=== PATIENT | male | born 1940 | race Caucasian/White ===

== ENCOUNTER 2022-08-26 09:12 | Inpatient (IN) ==
--- NOTE | 2022-08-26 09:51 | Emergency Department Note ---
History of Present Illness General Chief complaint: Stroke/CVA Symptoms Stated complaint: POSSIBLE STROKE, TROUBLE SPEKAING, CANT WALK Time Seen by Provider: 08/26/22 09:33 Source: patient and family (Children who are at the bedside) Mode of arrival: ambulatory Limitations: no limitations History of Present Illness Maximum Pain Intensity: 0 This patient is an 81-year-old male who is brought in after having weakness and slurred speech the said that they noticed this at 7:00 this morning. He was not feeling well yesterday however they said he just seemed a little off but today significantly worse. He apparently stopped taking blood pressure medicine he does have a history of some sort of brain bleed and family is unclear whether he had surgery or not. This was a couple years ago. He has been having trouble speaking. No chest pain or shortness of breath. He is more sleepy than normal. Allergies Allergy/AdvReac Type Severity Reaction Status Date / Time No Known Allergies Allergy Unverified 08/26/22 12:14 Past Med/Surg History Social History Smoking Status: Unknown if ever smoked Feels Safe at Home: Yes Immunizations: Past medical historyhe had some sort of hemorrhagic brain process. There is no old records available. Family does not know much about his medical history and they say he is very private with his medical information. They do of a POLST and he is a DO NOT RESUSCITATE and they said he would not want to be resuscitated or have intubation Review of Systems Unobtainable due to cognitive status (The patient is drowsy and does answer questions slowly but vaguely so is difficult to get an accurate answer) Physical Exam Vital Signs Vital Signs - 24 hr 08/26/22 09:17 Temperature 36.8 C Temperature Source Temporal Artery Scan Pulse Rate 64 Respiratory Rate 18 Blood Pressure 135/78 Blood Pressure Mean 97 Pulse Oximetry 97 Oxygen Delivery Method Room Air Sepsis Recent Fever Within 48 Hours No Sepsis New/Unexplained Change in Mental Status No Sepsis Action Taken by Nursing No Action Required General: Well developed well nourished slender older male who in no acute distress, breathing comfortably on room air. Speech is very thick and slow. He does answer some questions appropriately HEENT: Normal cephalic atraumatic. Pupils are equal round and reactive to light. Extraocular movements are intact. Oropharynx is pink with moist mucous membranes. No swelling of the mouth lips or tongue. He does appear to have a facial droop on the right Neck: Supple with a midline trachea. No meningeal signs or stiffness, no JVD or bruits. No Stridor. Chest: Clear to auscultation bilaterally. No wheezes or rhonchi. No increased work of breathing. Heart: Regular rate and rhythm without murmurs or gallops. Abdomen: Soft nontender, nondistended without rebound guarding or rigidity. Extremities: No cyanosis clubbing or edema. No calf tenderness or assymetry Spine/Back. Non tender to palpation. No CVA tenderness Skin: Good turgor without rashes. Neurologic exam: He does have slurred speech and facial droop on the right otherwise cranial nerves two through 12 are intact. Motor and sensation are intact and symmetrical throughout Course Administered Medications Discontinued Medications Aspirin (Aspirin 300 Mg Supp) 300 mg UT ONE ONE Stop: 08/26/22 11:06 Last Admin: 08/26/22 11:36 Dose: 300 mg Documented By: DAINA Ioversol (Optiray 320 500ml) 120 ml IV ONCE ONE Stop: 08/26/22 09:55 Last Admin: 08/26/22 09:54 Dose: 120 ml Documented By: NEISHA Critical Care Time Critical Care Time: Yes Total Critical Care Time: 35 Due to the patient's acute neurologic symptoms, concern for intracranial hemorrhage and CVA, need for stroke alert, frequent reassessment, consideration for thrombolytics, consultation with neurology and the hospitalist and discussions with the family about goals of care, I have personally spent greater than 35 minutes of critical care time in the direct management of this patient. This includes bedside care, interpretation of diagnostic studies, and testing, d iscussion with consultants, patient, and family members, and other required patient management activities. This 35 minutes is in excess of all separately billable procedures. Medical Decision Making Differential Diagnosis Hemorrhagic CVA, subdural, CVA, infection, electrolyte or metabolic abnormality, arrhythmia Medical Records Attestation: I reviewed the patient's medical records. Home Medications Current Medication List: was personally reviewed by me Laboratory Data Attestation: I reviewed the patient's lab results. Result diagrams: 08/26/22 09:39 08/26/22 09:39 Lab Results 08/26/22 08/26/22 08/26/22 Range/Units 09:39 09:39 09:39 WBC 4.31 L (4.8-10.8) K/ul RBC 5.11 (4.63-6.08) M/uL Hgb 15.8 (14.0-18.0) g/dl POC Hgb (14.0-18.0) g/dl Hct 45.3 (40.1-51.0) % POC Hct (42-52) % MCV 88.6 (80.0-100.0) fL MCH 30.9 (25.0-34.0) pg MCHC 34.9 (32.0-36.0) g/dL RDW Std Deviation 41.1 (36.4-46.3) fL RDW Coeff of Mychal 12.5 (11.5-14.5) % Plt Count 200 (130-400) K/uL MPV 9.2 L (9.4-12.4) fL Immature Gran % (Auto) 0.5 % Neut % (Auto) 60.6 % Lymph % (Auto) 20.0 % [place] % (Auto) 16.5 % Eos % (Auto) 1.2 % Baso % (Auto) 1.2 % Neut # (Auto) 2.62 (1.4-6.5) K/uL Lymph # (Auto) 0.86 L (1.2-3.4) K/uL [place] # (Auto) 0.71 (0.24-0.82) K/uL Eos # (Auto) 0.05 (0-0.50) K/uL Baso # (Auto) 0.05 (0-0.2) K/uL Immature Gran # (Auto) 0.02 (0.00-0.02) K/uL PT 11.3 (9.0-12.0) Seconds INR 1.1 (0.9-1.1) APTT 23.9 (21.0-31.0) Seconds PTT Ratio 0.9 POC Sodium (135-144) mmol/L Sodium 138 (136-145) mmol/L POC Potassium (3.3-5.0) mmol/L Potassium 4.1 (3.5-5.1) mmol/L POC Chloride (101-112) mmol/L Chloride 106 (98-107) mmol/L Carbon Dioxide 26 (21-32) mmol/L POC Total CO2 (24-31) mmol/L Anion Gap 6 (3-11) POC Anion Gap (16-25) mmol/L POC BUN (7-18) mg/dl BUN 18 (6-23) mg/dl Creatinine 1.05 (0.6-1.4) mg/dl POC Creatinine (0.6-1.3) mg/dl Est Cr Clr Drug Dosing Not Reportable Est GFR ( Amer) 76.8 ml/min Est GFR (Non-Af Amer) 66.3 ml/min BUN/Creatinine Ratio 17.1 (10-20) Glucose 99 (70-99(Fasting)) mg/dl POC Glucose (other) (70-99) mg/dl Calcium 9.2 (8.5-10.1) mg/dl POC Ioniz Calcium Jeffery (1.12-1.32) mmol/l Magnesium 2.2 (1.7-2.4) mg/dl Total Bilirubin 1.1 H (0.2-1.0) mg/dl AST 22 (13-39) U/L ALT 10 (7-52) U/L Alkaline Phosphatase 46 (34-104) U/L Troponin I High Sens 17.2 (0-20) pg/ml Total Protein 6.4 (6.0-8.3) gm/dl Albumin 4.1 (3.4-5.0) gm/dl Globulin 2.3 L (2.5-4.0) gm/dl Albumin/Globulin Ratio 1.8 (0.9-2) 08/26/22 Range/Units 09:42 WBC (4.8-10.8) K/ul RBC (4.63-6.08) M/uL Hgb (14.0-18.0) g/dl POC Hgb 15.3 (14.0-18.0) g/dl Hct (40.1-51.0) % POC Hct 45 (42-52) % MCV (80.0-100.0) fL MCH (25.0-34.0) pg MCHC (32.0-36.0) g/dL RDW Std Deviation (36.4-46.3) fL RDW Coeff of Mychal (11.5-14.5) % Plt Count (130-400) K/uL MPV (9.4-12.4) fL Immature Gran % (Auto) % Neut % (Auto) % Lymph % (Auto) % [place] % (Auto) % Eos % (Auto) % Baso % (Auto) % Neut # (Auto) (1.4-6.5) K/uL Lymph # (Auto) (1.2-3.4) K/uL [place] # (Auto) (0.24-0.82) K/uL Eos # (Auto) (0-0.50) K/uL Baso # (Auto) (0-0.2) K/uL Immature Gran # (Auto) (0.00-0.02) K/uL PT (9.0-12.0) Seconds INR (0.9-1.1) APTT (21.0-31.0) Seconds PTT Ratio POC Sodium 140 (135-144) mmol/L Sodium (136-145) mmol/L POC Potassium 4.0 (3.3-5.0) mmol/L Potassium (3.5-5.1) mmol/L POC Chloride 103 (101-112) mmol/L Chloride (98-107) mmol/L Carbon Dioxide (21-32) mmol/L POC Total CO2 25 (24-31) mmol/L Anion Gap (3-11) POC Anion Gap 17.0 (16-25) mmol/L POC BUN 19 H (7-18) mg/dl BUN (6-23) mg/dl Creatinine (0.6-1.4) mg/dl POC Creatinine 1.2 (0.6-1.3) mg/dl Est Cr Clr Drug Dosing Est GFR ( Amer) ml/min Est GFR (Non-Af Amer) ml/min BUN/Creatinine Ratio (10-20) Glucose (70-99(Fasting)) mg/dl POC Glucose (other) 101 H (70-99) mg/dl Calcium (8.5-10.1) mg/dl POC Ioniz Calcium Jeffery 1.18 (1.12-1.32) mmol/l Magnesium (1.7-2.4) mg/dl Total Bilirubin (0.2-1.0) mg/dl AST (13-39) U/L ALT (7-52) U/L Alkaline Phosphatase (34-104) U/L Troponin I High Sens (0-20) pg/ml Total Protein (6.0-8.3) gm/dl Albumin (3.4-5.0) gm/dl Globulin (2.5-4.0) gm/dl Albumin/Globulin Ratio (0.9-2) Imaging Data Attestation: I personally reviewed and interpreted this imaging study as follows: My Impression: Head CTthere is no acute hemorrhage. There is a acute infarct in the left posterior brain. No midline shift. Radiologist's Impression: Head CT 08/26/22 09:43 CT angio neck with con, CT angio head w con, CT head/brain wo con CLINICAL HISTORY: cva TECHNIQUE: Contiguous axial CT images of the head were acquired from the base of the skull to the vertex without intravenous contrast administration. CT angiography of the head and neck was performed following intravenous administration of iodinated contrast. Coronal and sagittal MIPS were obtained from the axial data set and were submitted for review. Automated dose lowering techniques and/or adjustment according to patient size were utilized for this examination. All measurements were calculated based on NASCET criteria. CT DOSE: 1346.53 mGy.cm Comparison: None available at the time of this dictation. FINDINGS: CT head: There is hypodensity in the left JAVA TECHNICAL ARCHITECT distribution. Encephalomalacia is in the left frontal lobe. Postsurgical changes are in the right calvarium. Lungs and soft tissues are unremarkable. CTA Neck: A 3 vessel aortic arch is shown. There is no significant atherosclerotic plaque in the aortic arch or the origins of the innominate, left common carotid, and left subclavian arteries. The common carotid, external carotid, cervical segments of the internal carotid arteries, and the cervical segments of the vertebral arteries are patent without hemodynamically significant stenosis. The left vertebral artery is dominant. CTA Head: The anterior and posterior cerebral circulations are patent. No hemodynamically significant stenosis, aneurysm, dissection, or arteriovenous malformation is shown. There is abrupt termination of the left JAVA TECHNICAL ARCHITECT. IMPRESSION: 1. There is an acute infarct in the left JAVA TECHNICAL ARCHITECT distribution with occlusion of the left JAVA TECHNICAL ARCHITECT. No hemorrhagic transformation seen. 2. No occlusion, hemodynamically significant stenosis, or dissection in the major cervical arteries. Assessment of stenosis of the internal carotid arteries is based on NASCET criteria. ACT 112: Negative or not required by law. Electronically signed by: Rigoberto Paula M.D. 08/26/2022 10:41 AM Head CTA 08/26/22 09:44 CT angio neck with con, CT angio head w con, CT head/brain wo con CLINICAL HISTORY: cva TECHNIQUE: Contiguous axial CT images of the head were acquired from the base of the skull to the vertex without intravenous contrast administration. CT angiography of the head and neck was performed following intravenous administration of iodinated contrast. Coronal and sagittal MIPS were obtained from the axial data set and were submitted for review. Automated dose lowering techniques and/or adjustment according to patient size were utilized for this examination. All measurements were calculated based on NASCET criteria. CT DOSE: 1346.53 mGy.cm Comparison: None available at the time of this dictation. FINDINGS: CT head: There is hypodensity in the left JAVA TECHNICAL ARCHITECT distribution. Encephalomalacia is in the left frontal lobe. Postsurgical changes are in the right calvarium. Lungs and soft tissues are unremarkable. CTA Neck: A 3 vessel aortic arch is shown. There is no significant atherosclerotic plaque in the aortic arch or the origins of the innominate, left common carotid, and left subclavian arteries. The common carotid, external c arotid, cervical segments of the internal carotid arteries, and the cervical segments of the vertebral arteries are patent without hemodynamically significant stenosis. The left vertebral artery is dominant. CTA Head: The anterior and posterior cerebral circulations are patent. No hemodynamically significant stenosis, aneurysm, dissection, or arteriovenous malformation is shown. There is abrupt termination of the left JAVA TECHNICAL ARCHITECT. IMPRESSION: 1. There is an acute infarct in the left JAVA TECHNICAL ARCHITECT distribution with occlusion of the left JAVA TECHNICAL ARCHITECT. No hemorrhagic transformation seen. 2. No occlusion, hemodynamically significant stenosis, or dissection in the major cervical arteries. Assessment of stenosis of the internal carotid arteries is based on NASCET criteria. ACT 112: Negative or not required by law. Electronically signed by: Rigoberto Paula M.D. 08/26/2022 10:41 AM Neck CTA 08/26/22 09:44 CT angio neck with con, CT angio head w con, CT head/brain wo con CLINICAL HISTORY: cva TECHNIQUE: Contiguous axial CT images of the head were acquired from the base of the skull to the vertex without intravenous contrast administration. CT angiography of the head and neck was performed following intravenous administration of iodinated contrast. Coronal and sagittal MIPS were obtained from the axial data set and were submitted for review. Automated dose lowering techniques and/or adjustment according to patient size were utilized for this examination. All measurements were calculated based on NASCET criteria. CT DOSE: 1346.53 mGy.cm Comparison: None available at the time of this dictation. FINDINGS: CT head: There is hypodensity in the left JAVA TECHNICAL ARCHITECT distribution. Encephalomalacia is in the left frontal lobe. Postsurgical changes are in the right calvarium. Lungs and soft tissues are unremarkable. CTA Neck: A 3 vessel aortic arch is shown. There is no significant atherosclerotic plaque in the aortic arch or the origins of the innominate, left common carotid, and left subclavian arteries. The common carotid, external carotid, cervical segments of the internal carotid arteries, and the cervical segments of the vertebral arteries are patent without hemodynamically significant stenosis. The left vertebral artery is dominant. CTA Head: The anterior and posterior cerebral circulations are patent. No hemodynamically significant stenosis, aneurysm, dissection, or arteriovenous malformation is shown. There is abrupt termination of the left JAVA TECHNICAL ARCHITECT. IMPRESSION: 1. There is an acute infarct in the left JAVA TECHNICAL ARCHITECT distribution with occlusion of the left JAVA TECHNICAL ARCHITECT. No hemorrhagic transformation seen. 2. No occlusion, hemodynamically significant stenosis, or dissection in the major cervical arteries. Assessment of stenosis of the internal carotid arteries is based on NASCET criteria. ACT 112: Negative or not required by law. Electronically signed by: Rigoberto Paula M.D. 08/26/2022 10:41 AM ECG Data Attestation: I personally reviewed and interpreted this ECG as follows: Indication: + weakness Rate (beats per minute): 59 Rhythm: + sinus bradycardia ECG Intervals/blocks: + Normal QRS, + Normal QT and + Normal UT ECG [place]: + Normal ECG ST segments: + Normal ST segments ECG Findings: + Poor R wave progression; no PACs or no PVCs Comparison ECG Date: no prior available MDM Narrative This patient comes in as described above. The nurse called me to see the patient as he presented with strokelike symptoms and acute illness and I went and immediately and they were in the process of getting an IV and getting blood work done. His EKG does not show ischemic changes and there is no old for comparison. He does seem sleepy but answers some questions appropriately, his speech is very thick and slow. He appears to have a facial droop on the right. He had a brain hemorrhage there may have been a some trauma recently as well apparently hit his head on the window but they are not sure how long ago. He was also feeling off yesterday and seemed not himself. He also stopped taking blood pressure medicine. I do not think he would likely be a tPA candidate because of all these measures with a history of hemorrhagic CVA and he woke up at 7:00 AM with these symptoms so it is uncertain how long this actually has gone on. I did call a stroke alert to expedite his care. Also I talk to Dr. Arriaga, and he agrees that the patient is not a thrombolytic candidate. 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 Talking to family at length they tell me he is DNR and would not want to be intubated and they do not want aggressive measures such as feeding tubes. He will be admitted for further treatment and evaluation he was given rectal aspirin. I have consulted the [facility] Hospitalist. Continuous cardiac monitoring: An order was placed in EMR for continuous cardiac monitoring. 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), Essential hypertension, Goals of care, counseling/discussion, DNR (do not resuscitate), Lab test negative for COVID-19 virus Discharge Plan Visit Data Chief Complaint: Stroke/CVA Symptoms Stated Complaint: POSSIBLE STROKE, TROUBLE SPEKAING, CANT WALK ED Provider: Uday Rey Discharge Problem: Acute cerebrovascular accident (CVA) due to occlusion of left posterior cerebral artery, 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
[2022-08-26 09:54] LABS: iSTAT Creatinine 1.2 mg/dl (0.6-1.3); iSTAT Hemoglobin 15.3 g/dl (14.0-18.0); iSTAT Ionized Calcium 1.18 mmol/l (1.12-1.32)
[2022-08-26] MEDS ORDERED: OPTIRAY 320 500ml IV ONE (09:54)
[2022-08-26 10:03] LABS: INR 1.1 (0.9-1.1); Partial Thromboplastin Ratio 0.9; Partial Thromboplastin Time 23.9 Seconds (21.0-31.0); Prothrombin Time 11.3 Seconds (9.0-12.0)
[2022-08-26 10:13] LABS: Alanine Aminotransferase 10 U/L (7-52); Albumin Globulin Ratio 1.8 (0.9-2); Albumin Level 4.1 gm/dl (3.4-5.0); Alkaline Phosphatase 46 U/L (34-104); Anion Gap 6 (3-11); Aspartate Aminotransferase 22 U/L (13-39); BUN Creatinine Ratio 17.1 (10-20); Bilirubin,Total 1.1 mg/dl (0.2-1.0); Blood Urea Nitrogen 18 mg/dl (6-23); Calcium 9.2 mg/dl (8.5-10.1); Carbon Dioxide 26 mmol/L (21-32); Chloride 106 mmol/L (98-107); Est GFR (African American) 76.8 ml/min; Est GFR (Non-African American) 66.3 ml/min; Globulin 2.3 gm/dl (2.5-4.0); Glucose 99 mg/dl (70-99(Fasting)); Magnesium 2.2 mg/dl (1.7-2.4); Potassium 4.1 mmol/L (3.5-5.1); Sodium 138 mmol/L (136-145); Total Protein 6.4 gm/dl (6.0-8.3); Troponin I High Sensitivity 17.2 pg/ml (0-20)
[2022-08-26 10:14] LABS: Basophils # (auto) 0.05 K/uL (0-0.2); Basophils % (auto) 1.2 %; Eosinophils # (auto) 0.05 K/uL (0-0.50); Eosinophils % (auto) 1.2 %; Hematocrit (blood only) 45.3 % (40.1-51.0); Hemoglobin 15.8 g/dl (14.0-18.0); Immature Granulocytes # (auto) 0.02 K/uL (0.00-0.02); Immature Granulocytes % (auto) 0.5 %; Lymphocytes # (auto) 0.86 K/uL (1.2-3.4); Mean Corpuscular Hemoglobin 30.9 pg (25.0-34.0); Mean Corpuscular Hgb Conc 34.9 g/dL (32.0-36.0); Mean Corpuscular Volume 88.6 fL (80.0-100.0); Mean Platelet Volume 9.2 fL (9.4-12.4); Monocytes # (auto) 0.71 K/uL (0.24-0.82); Monocytes % (auto) 16.5 %; Neutrophils # (auto) 2.62 K/uL (1.4-6.5); Neutrophils % (auto) 60.6 %; Platelet Count 200 K/uL (130-400); RDW Coefficient of Variation 12.5 % (11.5-14.5); RDW Standard Deviation 41.1 fL (36.4-46.3); Red Blood Count 5.11 M/uL (4.63-6.08); White Blood Count 4.31 K/ul (4.8-10.8)
--- NOTE | 2022-08-26 10:43 | CT Scan Report ---
CT angio neck with con, CT angio head w con, CT head/brain wo con CLINICAL HISTORY: cva TECHNIQUE: Contiguous axial CT images of the head were acquired from the base of the skull to the donna dontae without intravenous contrast administration. CT angiography of the head and neck was performed f ollowing intravenous administration of iodinated contrast. Coronal and sagittal MIPS were obtained fr om the axial data set and were submitted for review. Automated dose lowering techniques and/or adjus tment according to patient size were utilized for this examination. All measurements were calculated based on NASCET criteria. CT DOSE: 1346.53 mGy.cm Comparison: None available at the time of this dictation. FINDINGS: CT head: There is hypodensity in the left OCULAR PATHOLOGIST distribution. Encephalomalacia is in the left frontal l obe. Postsurgical changes are in the right calvarium. Lungs and soft tissues are unremarkable. CTA Neck: A 3 vessel aortic arch is shown. There is no significant atherosclerotic plaque in the aor tic arch or the origins of the innominate, left common carotid, and left subclavian arteries. The c ommon carotid, external carotid, cervical segments of the internal carotid arteries, and the cervical segments of the vertebral arteries are patent without hemodynamically significant stenosis. The left vertebral artery is dominant. CTA Head: The anterior and posterior cerebral circulations are patent. No hemodynamically significan t stenosis, aneurysm, dissection, or arteriovenous malformation is shown. There is abrupt termination of the left OCULAR PATHOLOGIST. IMPRESSION: 1. There is an acute infarct in the left OCULAR PATHOLOGIST distribution with occlusion of the left OCULAR PATHOLOGIST. No hemorrh agic transformation seen. 2. No occlusion, hemodynamically significant stenosis, or dissection in the major cervical arteries. Assessment of stenosis of the internal carotid arteries is based on NASCET criteria. ACT 112: Negative or not required by law. Electronically signed by: Rigoberto Paula M.D. 08/26/2022 10:41 AM
--- NOTE | 2022-08-26 10:43 | CT Scan Report ---
CT angio neck with con, CT angio head w con, CT head/brain wo con CLINICAL HISTORY: cva TECHNIQUE: Contiguous axial CT images of the head were acquired from the base of the skull to the donna dontae without intravenous contrast administration. CT angiography of the head and neck was performed f ollowing intravenous administration of iodinated contrast. Coronal and sagittal MIPS were obtained fr om the axial data set and were submitted for review. Automated dose lowering techniques and/or adjus tment according to patient size were utilized for this examination. All measurements were calculated based on NASCET criteria. CT DOSE: 1346.53 mGy.cm Comparison: None available at the time of this dictation. FINDINGS: CT head: There is hypodensity in the left RELAY SHOP SUPERVISOR distribution. Encephalomalacia is in the left frontal l obe. Postsurgical changes are in the right calvarium. Lungs and soft tissues are unremarkable. CTA Neck: A 3 vessel aortic arch is shown. There is no significant atherosclerotic plaque in the aor tic arch or the origins of the innominate, left common carotid, and left subclavian arteries. The c ommon carotid, external carotid, cervical segments of the internal carotid arteries, and the cervical segments of the vertebral arteries are patent without hemodynamically significant stenosis. The left vertebral artery is dominant. CTA Head: The anterior and posterior cerebral circulations are patent. No hemodynamically significan t stenosis, aneurysm, dissection, or arteriovenous malformation is shown. There is abrupt termination of the left RELAY SHOP SUPERVISOR. IMPRESSION: 1. There is an acute infarct in the left RELAY SHOP SUPERVISOR distribution with occlusion of the left RELAY SHOP SUPERVISOR. No hemorrh agic transformation seen. 2. No occlusion, hemodynamically significant stenosis, or dissection in the major cervical arteries. Assessment of stenosis of the internal carotid arteries is based on NASCET criteria. ACT 112: Negative or not required by law. Electronically signed by: Rigoberto Paula M.D. 08/26/2022 10:41 AM
--- NOTE | 2022-08-26 10:43 | CT Scan Report ---
CT angio neck with con, CT angio head w con, CT head/brain wo con CLINICAL HISTORY: cva TECHNIQUE: Contiguous axial CT images of the head were acquired from the base of the skull to the donna dontae without intravenous contrast administration. CT angiography of the head and neck was performed f ollowing intravenous administration of iodinated contrast. Coronal and sagittal MIPS were obtained fr om the axial data set and were submitted for review. Automated dose lowering techniques and/or adjus tment according to patient size were utilized for this examination. All measurements were calculated based on NASCET criteria. CT DOSE: 1346.53 mGy.cm Comparison: None available at the time of this dictation. FINDINGS: CT head: There is hypodensity in the left INFECTION PREVENTION SPECIALIST distribution. Encephalomalacia is in the left frontal l obe. Postsurgical changes are in the right calvarium. Lungs and soft tissues are unremarkable. CTA Neck: A 3 vessel aortic arch is shown. There is no significant atherosclerotic plaque in the aor tic arch or the origins of the innominate, left common carotid, and left subclavian arteries. The c ommon carotid, external carotid, cervical segments of the internal carotid arteries, and the cervical segments of the vertebral arteries are patent without hemodynamically significant stenosis. The left vertebral artery is dominant. CTA Head: The anterior and posterior cerebral circulations are patent. No hemodynamically significan t stenosis, aneurysm, dissection, or arteriovenous malformation is shown. There is abrupt termination of the left INFECTION PREVENTION SPECIALIST. IMPRESSION: 1. There is an acute infarct in the left INFECTION PREVENTION SPECIALIST distribution with occlusion of the left INFECTION PREVENTION SPECIALIST. No hemorrh agic transformation seen. 2. No occlusion, hemodynamically significant stenosis, or dissection in the major cervical arteries. Assessment of stenosis of the internal carotid arteries is based on NASCET criteria. ACT 112: Negative or not required by law. Electronically signed by: Rigoberto Paula M.D. 08/26/2022 10:41 AM
[2022-08-26] MEDS ORDERED: ASPIRIN 300 MG SUPP PR ONE (11:05)
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
[2022-08-26] MEDS ORDERED: PHARMACIST DISCHARGE MED REC CONSULT PRN (13:26)
--- NOTE | 2022-08-26 16:06 | Neurology Consultation ---
Date of Consultation August 26, 2022 Assessment & Plan (1) Acute cerebrovascular accident (CVA) due to occlusion of left posterior cerebral artery: Impression: The patient was found lethargic with right-sided hemiparesis this morning. He was not a candidate for thrombolytic treatment because of being outside of treatment window. He was giving an aspirin suppository. Head CT and CT angiography of head was consistent with the left posterior cerebral artery occlusion related acute ischemic stroke. CT angiography of the neck did not show hemodynamically significant stenosis. Telemetry monitoring has been showing sinus rhythm. The patient is DNR and DNI. Family declined further testing including MRI and echocardiogram. Plan/recommendations: Aspirin suppository 300 mg daily until p.o. started. Physical therapy, Occupational Therapy and speech pathology consultations. We will keep the patient n.p.o. until speech pathology clearance. IV normal saline 100 mL/h. Permissive hypertension for next 24 hours. We will not treat high blood pressure up to 220/120. Then, gradual lowering blood pressure with goal level is lower than 130/80. Lipid panel. We will start patient on statin when possible. Goal LDL level is lower than 70. Echocardiogram. Telemetry monitoring. Brain MRI to investigate for additional ischemic strokes which might indicate anticoagulation. Family meeting to decide care level. (2) Essential hypertension: Impression: As seen above. (3) CAD (coronary atherosclerotic disease): Plan Thank you for the consultation. History of Present Illness Reason for Consultation: CVA Requesting Physician: Stephanie Schwab PA-C Attending Physician: Mana Galeano MD History of Present Illness The patient is 81-year-old gentleman, who was brought to emergency department this morning, after he was found confused, with right side weakness this morning by other family members. Head CT revealed acute ischemic stroke involving the left posterior cerebral artery territory. CT angiography of the neck was unremarkable but CT angiography of head showed left posterior cerebral artery occlusion. Because of the patient's lethargy, most of the information has been gathered from the patient's family. The patient has no prior history of stroke or stroke symptoms. There has been no established diagnosis of atrial fibrillation. According to family, the patient stopped taking blood pressure medication recently for unknown reason. After discussing case with telestroke neurologist, the patient was found not a candidate for thrombolytic treatment because of being outside of treatment window. He has remote history of intracranial hemorrhage but we do not know details. The patient received a dose of aspirin suppository. Family refused additional work-up including MRI and echocardiogram at this time. They changed the patient's care level to DNR/DNI. The patient is currently very lethargic and cannot answer questions. He has right-sided dense hemiparesis as well as dysarthria and limited verbal output. I have reviewed the patient's chart including imaging studies and visualized them personally. I have discussed the case with admitting physician. Allergies Allergy/AdvReac Type Severity Reaction Status Date / Time No Known Allergies Allergy Unverified 08/26/22 12:14 Home Medications Medication Instructions Recorded Confirmed Type carvedilol 3.125 mg tablet 3.125 mg PO BID 08/26/22 08/26/22 History tamsulosin 0.4 mg capsule 0.4 mg PO DAILY 08/26/22 08/26/22 History Patient History Social History Smoking Status: Unknown if ever smoked Feels Safe at Home: Yes Review of Systems Review of Systems: Unobtainable due to cognitive status Physical Exam Physical Exam: General Examination: Constitutional: Well developed person in no acute distress. HEENT: Normal exam with inspection. Oral mucosa is very dry. CV: Hearth rhythm is regular. Neck: Supple, no carotid bruits. Lungs: Non-labored and comfortable breathing. Abdomen: Soft, non-tender, non-distended. Skin: No rash or ecchymosis. Extremities: No edema or cyanosis NEUROLOGICAL EXAMINATION: Mental Status: Lethargic. Opens eyes to tactile stimuli with positive eye contact. Falls back to sleep state quickly. Cranial Nerves: Pupils are 4 mm and reactive to light bilaterally. Positive gag and corneal reflexes. There is some facial asymmetry with weakness on the right, during grimacing. No nystagmus. Visual mac cannot be tested reliably Funduscopy: Cannot visualize. Motor: The patient moves left upper and lower extremities strongly.The patient cannot raise his right arm or leg against gravity. Tone: Decreased on the right side. Sensory: Feels pinprick in all extremities. Coordination: Cannot be assessed at this time because of altered mental status. Speech: The patient is currently aphasic. He tries to make few words, which is very dysarthric. He follows some of simple verbal commands appropriately. Gait: Unable to assess. Musculoskeletal: Normal muscle bulk, no atrophy. Results & Data ([facility]) Vital Signs (Past 12 Hours) Vital Signs Temp Pulse Pulse Resp BP BP Pulse Ox 08/26/22 13:00 63 20 153/59 H 90 08/26/22 11:41 64 24 143/77 H 96 08/26/22 11:12 58 L 16 134/69 94 08/26/22 09:17 36.8 C 64 18 135/78 97 O2 Del Method 08/26/22 13:00 Room Air 08/26/22 11:41 Room Air 08/26/22 11:12 08/26/22 09:17 Room Air Laboratory Results Laboratory Results - last 24 hr 08/26/22 08/26/22 08/26/22 09:39 09:39 09:39 WBC 4.31 L RBC 5.11 Hgb 15.8 POC Hgb Hct 45.3 POC Hct MCV 88.6 MCH 30.9 MCHC 34.9 RDW Std Deviation 41.1 RDW Coeff of Mychal 12.5 Plt Count 200 MPV 9.2 L Immature Gran % (Auto) 0.5 Neut % (Auto) 60.6 Lymph % (Auto) 20.0 [place] % (Auto) 16.5 Eos % (Auto) 1.2 Baso % (Auto) 1.2 Neut # (Auto) 2.62 Lymph # (Auto) 0.86 L [place] # (Auto) 0.71 Eos # (Auto) 0.05 Baso # (Auto) 0.05 Immature Gran # (Auto) 0.02 PT 11.3 INR 1.1 APTT 23.9 PTT Ratio 0.9 POC Sodium Sodium 138 POC Potassium Potassium 4.1 POC Chloride Chloride 106 Carbon Dioxide 26 POC Total CO2 Anion Gap 6 POC Anion Gap POC BUN BUN 18 Creatinine 1.05 POC Creatinine Est Cr Clr Drug Dosing Not Reportable Est GFR ( Amer) 76.8 Est GFR (Non-Af Amer) 66.3 BUN/Creatinine Ratio 17.1 Glucose 99 POC Glucose (other) Calcium 9.2 POC Ioniz Calcium Jeffery Magnesium 2.2 Total Bilirubin 1.1 H AST 22 ALT 10 Alkaline Phosphatase 46 Troponin I High Sens 17.2 Total Protein 6.4 Albumin 4.1 Globulin 2.3 L Albumin/Globulin Ratio 1.8 SARS-CoV-2, RNA, NAAT 08/26/22 08/26/22 09:42 11:21 WBC RBC Hgb POC Hgb 15.3 Hct POC Hct 45 MCV MCH MCHC RDW Std Deviation RDW Coeff of Mychal Plt Count MPV Immature Gran % (Auto) Neut % (Auto) Lymph % (Auto) [place] % (Auto) Eos % (Auto) Baso % (Auto) Neut # (Auto) Lymph # (Auto) [place] # (Auto) Eos # (Auto) Baso # (Auto) Immature Gran # (Auto) PT INR APTT PTT Ratio POC Sodium 140 Sodium POC Potassium 4.0 Potassium POC Chloride 103 Chloride Carbon Dioxide POC Total CO2 25 Anion Gap POC Anion Gap 17.0 POC BUN 19 H BUN Creatinine POC Creatinine 1.2 Est Cr Clr Drug Dosing Est GFR ( Amer) Est GFR (Non-Af Amer) BUN/Creatinine Ratio Glucose POC Glucose (other) 101 H Calcium POC Ioniz Calcium Jeffery 1.18 Magnesium Total Bilirubin AST ALT Alkaline Phosphatase Troponin I High Sens Total Protein Albumin Globulin Albumin/Globulin Ratio SARS-CoV-2, RNA, NAAT NEGATIVE Diagnostic Findings Head CT 08/26/22 09:43 CT angio neck with con, CT angio head w con, CT head/brain wo con CLINICAL HISTORY: cva TECHNIQUE: Contiguous axial CT images of the head were acquired from the base of the skull to the vertex without intravenous contrast administration. CT angiography of the head and neck was performed following intravenous administration of iodinated contrast. Coronal and sagittal MIPS were obtained from the axial data set and were submitted for review. Automated dose lowering techniques and/or adjustment according to patient size were utilized for this examination. All measurements were calculated based on NASCET criteria. CT DOSE: 1346.53 mGy.cm Comparison: None available at the time of this dictation. FINDINGS: CT head: There is hypodensity in the left MANAGED CARE SPECIALIST distribution. Encephalomalacia is in the left frontal lobe. Postsurgical changes are in the right calvarium. Lungs and soft tissues are unremarkable. CTA Neck: A 3 vessel aortic arch is shown. There is no significant atherosclerotic plaque in the aortic arch or the origins of the innominate, left common carotid, and left subclavian arteries. The common carotid, external carotid, cervical segments of the internal carotid arteries, and the cervical segments of the vertebral arteries are patent without hemodynamically significant stenosis. The left vertebral artery is dominant. CTA Head: The anterior and posterior cerebral circulations are patent. No hemodynamically significant stenosis, aneurysm, dissection, or arteriovenous malformation is shown. There is abrupt termination of the left MANAGED CARE SPECIALIST. IMPRESSION: 1. There is an acute infarct in the left MANAGED CARE SPECIALIST distribution with occlusion of the left MANAGED CARE SPECIALIST. No hemorrhagic transformation seen. 2. No occlusion, hemodynamically significant stenosis, or dissection in the major cervical arteries. Assessment of stenosis of the internal carotid arteries is based on NASCET criteria. ACT 112: Negative or not required by law. Electronically signed by: Rigoberto Paula M.D. 08/26/2022 10:41 AM Head CTA 08/26/22 09:44 CT angio neck with con, CT angio head w con, CT head/brain wo con CLINICAL HISTORY: cva TECHNIQUE: Contiguous axial CT images of the head were acquired from the base of the skull to the vertex without intravenous contrast administration. CT angiography of the head and neck was performed following intravenous administration of iodinated contrast. Coronal and sagittal MIPS were obtained from the axial data set and were submitted for review. Automated dose lowering techniques and/or adjustment according to patient size were utilized for this examination. All measurements were calculated based on NASCET criteria. CT DOSE: 1346.53 mGy.cm Comparison: None available at the time of this dictation. FINDINGS: CT head: There is hypodensity in the left MANAGED CARE SPECIALIST distribution. Encephalomalacia is in the left frontal lobe. Postsurgical changes are in the right calvarium. Lungs and soft tissues are unremarkable. CTA Neck: A 3 vessel aortic arch is shown. There is no significant atherosclerotic plaque in the aortic arch or the origins of the innominate, left common carotid, and left subclavian arteries. The common carotid, external carotid, cervical segments of the internal carotid arteries, and the cervical segments of the vertebral arteries are patent without hemodynamically significant stenosis. The left vertebral artery is dominant. CTA Head: The anterior and posterior cerebral circulations are patent. No hemodynamically significant stenosis, aneurysm, dissection, or arteriovenous malformation is shown. There is abrupt termination of the left MANAGED CARE SPECIALIST. IMPRESSION: 1. There is an acute infarct in the left MANAGED CARE SPECIALIST distribution with occlusion of the left MANAGED CARE SPECIALIST. No hemorrhagic transformation seen. 2. No occlusion, hemodynamically significant stenosis, or dissection in the major cervical arteries. Assessment of stenosis of the internal carotid arteries is based on NASCET criteria. ACT 112: Negative or not required by law. Electronically signed by: Rigoberto Paula M.D. 08/26/2022 10:41 AM Neck CTA 08/26/22 09:44 CT angio neck with con, CT angio head w con, CT head/brain wo con CLINICAL HISTORY: cva TECHNIQUE: Contiguous axial CT images of the head were acquired from the base of the skull to the vertex without intravenous contrast administration. CT angiography of the head and neck was performed following intravenous administration of iodinated contrast. Coronal and sagittal MIPS were obtained from the axial data set and were submitted for review. Automated dose lowering techniques and/or adjustment according to patient size were utilized for this examination. All measurements were calculated based on NASCET criteria. CT DOSE: 1346.53 mGy.cm Comparison: None available at the time of this dictation. FINDINGS: CT head: There is hypodensity in the left MANAGED CARE SPECIALIST distribution. Encephalomalacia is in the left frontal lobe. Postsurgical changes are in the right calvarium. Lungs and soft tissues are unremarkable. CTA Neck: A 3 vessel aortic arch is shown. There is no significant atherosclerotic plaque in the aortic arch or the origins of the innominate, left common carotid, and left subclavian arteries. The common carotid, external carotid, cervical segments of the internal carotid arteries, and the cervical segments of the vertebral arteries are patent without hemodynamically significant stenosis. The left vertebral artery is dominant. CTA Head: The anterior and posterior cerebral circulations are patent. No hemodynamically significant stenosis, aneurysm, dissection, or arteriovenous malformation is shown. There is abrupt termination of the left MANAGED CARE SPECIALIST. IMPRESSION: 1. There is an acute infarct in the left MANAGED CARE SPECIALIST distribution with occlusion of the left MANAGED CARE SPECIALIST. No hemorrhagic transformation seen. 2. No occlusion, hemodynamically significant stenosis, or dissection in the ma sonya cervical arteries. Assessment of stenosis of the internal carotid arteries is based on NASCET criteria. ACT 112: Negative or not required by law. Electronically signed by: Rigoberto Paula M.D. 08/26/2022 10:41 AM
[2022-08-26] MEDS ORDERED: LACTATED RINGER'S 1,000 ML IV SCH (20:00)
--- NOTE | 2022-08-27 05:30 | Electrocardiogram Report ---
Test Reason : Blood Pressure : / mmHG Vent. Rate : 059 BPM Atrial Rate : 059 BPM P-R Int : 142 ms QRS Dur : 084 ms QT Int : 400 ms P-R-T Axes : 056 008 083 degrees QTc Int : 396 ms Sinus bradycardia Low voltage QRS Cannot rule out Anterior infarct , age undetermined Nonspecific T wave abnormality Abnormal ECG No previous ECGs available Confirmed by Graeme Jarrett ([id number]) on 08/27/2022 5:30:08 AM Referred By: ED Confirmed By:Graeme Jarrett
[2022-08-27 07:42] LABS: Basophils # (auto) 0.06 K/uL (0-0.2); Basophils % (auto) 1.5 %; Eosinophils # (auto) 0.02 K/uL (0-0.50); Eosinophils % (auto) 0.5 %; Hematocrit (blood only) 45.8 % (40.1-51.0); Hemoglobin 16.1 g/dl (14.0-18.0); Immature Granulocytes # (auto) 0.02 K/uL (0.00-0.02); Immature Granulocytes % (auto) 0.5 %; Lymphocytes # (auto) 1.13 K/uL (1.2-3.4); Lymphocytes % (auto) 27.9 %; Mean Corpuscular Hemoglobin 30.5 pg (25.0-34.0); Mean Corpuscular Hgb Conc 35.2 g/dL (32.0-36.0); Mean Corpuscular Volume 86.7 fL (80.0-100.0); Mean Platelet Volume 9.5 fL (9.4-12.4); Monocytes # (auto) 0.69 K/uL (0.24-0.82); Neutrophils # (auto) 2.13 K/uL (1.4-6.5); Neutrophils % (auto) 52.6 %; Platelet Count 190 K/uL (130-400); RDW Coefficient of Variation 12.6 % (11.5-14.5); Red Blood Count 5.28 M/uL (4.63-6.08); White Blood Count 4.05 K/ul (4.8-10.8)
[2022-08-27 08:10] LABS: Chol HDL Ratio 4.7 (0-5); Est GFR (Non-African American) 61.3 ml/min; Estimated Average Glucose 120 mg/dl; Hemoglobin A1C 5.8 % (4.5-5.6)
[2022-08-27] MEDS ORDERED: NSS + 20MEQ KCL 20 MEQ/1,000 ML BAG IV SCH (08:30)
[2022-08-27] MEDS ORDERED: ASPIRIN 300 MG SUPP PR SCH (09:00)
[2022-08-27] MEDS ORDERED: ATORVASTATIN 40 MG TAB PO SCH (09:00)
[2022-08-27] MEDS ORDERED: ENOXAPARIN INJ 40 MG/0.4 ML SYR SQ SCH (09:00)
--- NOTE | 2022-08-27 11:19 | Hospitalist Progress Note ---
Date of Service August 27, 2022 Assessment & Plan (1) Acute cerebrovascular accident (CVA) due to occlusion of left posterior cerebral artery: Plan: With associated facial droop and dysarthria, right sided weakness Lengthy discussion held with pt's 5 children and palliative care Patient was unable to participate in this AM's discussion due to lethargy/altered MS Patient's 5 children are all in agreement that he would not want any further work-up, treatment, post-discharge rehab, etc All of his children requested transition to comfort measures only and ultimately home with hospice I counseled them that he may improve from a mental status standpoint over the next few days and his deficits from the stroke may also improve during that same time frame The children voiced understanding of such, but still feel that their father has made it clear to them previously that he would not want ongoing treatment/rehab/etc To that end we d/c speech eval, PT/OT, echo, etc - transitioned him to comfort measures and transferred him off tele to med/surg made social work aware of this AM's events Allow diet as desired/tolerated if awake enough to eat (2) Essential hypertension: Plan: holding coreg - allow permissive HTN (3) CAD (coronary atherosclerotic disease): Plan: known h/o such (4) BPH (benign prostatic hyperplasia): Plan: holding alpha briana from home (5) Weight loss: (6) History of subdural hematoma (post traumatic): (7) Acute metabolic encephalopathy: Plan: 2nd to acute CVA (8) Palliative care encounter: Plan: see HPI for more details Plan as the day wore on Mr Craft became more awake/alert, attempting to talk, more interactive, etc he was even able to take a pureed dinner and fed himself I was called back to the pt's room at the family's request a son and daughter stated that there is now family conflict over his care plan and particularly his discharge care plan several children (not currently present) had also asked if we should be feeding him if he is on comfort measures? I told his son & daughter that it is very permissible for Mr Craft to eat/drink as he wishes while on comfort care measures will need to speak with case management tomorrow regarding this complex case total care time today about 90 minutes spread over 3 bedside visits, >50% of which was spent counseling the pt's family Admission and Anticipated Discharge Date Admission Date: August 26, 2022 Subjective notified this am by nursing staff that multiple children of the patient were at bedside and were requesting to speak with the palliative care team I consulted palliative care and we discussed his case before going to see the patient & his family during AM rounds 4 of his 5 children were present in the room his 5th child was on speaker phone late in the visit a grand-daughter was also present Tamie from palliative care was present patient was sleeping for most of the visit he would open his eyes periodically but wasn't following commands or able to speak we had a lengthy discussion regarding his stroke I told his children that under normal circumstances we would give him several days to monitor his recovery from the stroke as altered mental status, lethargy, etc are quite common in the first few days following a stroke event his children did not believe that he would want to remain in this state even if it was only for a few days they recounted how he had left AMA during a prior hospital stay when he had fallen and developed a SDH he apparently has made it clear to the children he would not want IV fluids, IV antibiotics, artificial feedings, etc if he was deemed at end-of-life he was driving up until a few days ago and was doing yard work; his children stated that if he wasn't able to return to his prior level of functioning he has told them he would rather "not be living" he has told his children he does NOT want rehab, does NOT want SNF placement - under no circumstances Tamie from palliative care discussed comfort measures/palliative care/hospice - the differences in these terms - at great length with his children the 5 children were all in agreement with beginning comfort measures right away as opposed to waiting to see if he had any improvement from the stroke they also voiced they wanted to take him home with hospice tele overnight - NSR Review of Systems Review of Systems: Unobtainable due to cognitive status family reports uncertain amount of weight loss over the last year along with poor appetite Physical Exam Physical Exam: gen - thin, sleeping face - R facial droop mouth - MM dry neck - no JVD heart - RRR, s1 s2, no murmur lungs - CTA b/l abd - soft NT ND BS+ ext - no edema, pulses 2+ b/l neuro - R facial droop; the minimal amount of speaking he did he was dysarthric; mild right arm weakness; left arm strength wnl; unable to assess leg strength Results & Data Results & Data ([facility]) Vital Signs (Past 12 Hours) Vital Signs Temp Pulse Pulse Resp BP Pulse Ox O2 Del Method 08/27/22 10:00 68 08/27/22 07:46 36.8 C 60 16 167/74 H 95 Room Air 08/27/22 03:03 36.6 C 62 18 157/70 H 95 08/26/22 23:28 62 08/26/22 23:24 55 L Laboratory Results Laboratory Results - last 24 hr 08/26/22 08/26/22 08/26/22 11:21 16:44 21:52 WBC RBC Hgb Hct MCV MCH MCHC RDW Std Deviation RDW Coeff of Mychal Plt Count MPV Immature Gran % (Auto) Neut % (Auto) Lymph % (Auto) [place] % (Auto) Eos % (Auto) Baso % (Auto) Neut # (Auto) Lymph # (Auto) [place] # (Auto) Eos # (Auto) Baso # (Auto) Immature Gran # (Auto) Sodium Potassium Chloride Carbon Dioxide Anion Gap BUN Creatinine Est Cr Clr Drug Dosing Est GFR ( Amer) Est GFR (Non-Af Amer) BUN/Creatinine Ratio Glucose Estimat Average Glucose Hemoglobin A1c Calcium Troponin I High Sens 18.2 19.7 Triglycerides Cholesterol LDL Cholesterol, Calc VLDL Cholesterol, Calc HDL Cholesterol Cholesterol/HDL Ratio SARS-CoV-2, RNA, NAAT NEGATIVE 08/27/22 08/27/22 08/27/22 07:18 07:18 07:18 WBC 4.05 L RBC 5.28 Hgb 16.1 Hct 45.8 MCV 86.7 MCH 30.5 MCHC 35.2 RDW Std Deviation 40.0 RDW Coeff of Mychal 12.6 Plt Count 190 MPV 9.5 Immature Gran % (Auto) 0.5 Neut % (Auto) 52.6 Lymph % (Auto) 27.9 [place] % (Auto) 17.0 Eos % (Auto) 0.5 Baso % (Auto) 1.5 Neut # (Auto) 2.13 Lymph # (Auto) 1.13 L [place] # (Auto) 0.69 Eos # (Auto) 0.02 Baso # (Auto) 0.06 Immature Gran # (Auto) 0.02 Sodium 137 Potassium 4.0 Chloride 104 Carbon Dioxide 25 Anion Gap 8 BUN 19 Creatinine 1.12 Est Cr Clr Drug Dosing 45.0 Est GFR ( Amer) 71.0 Est GFR (Non-Af Amer) 61.3 BUN/Creatinine Ratio 17.0 Glucose 90 Estimat Average Glucose 120 Hemoglobin A1c 5.8 H Calcium 9.0 Troponin I High Sens Triglycerides 71 Cholesterol 187 LDL Cholesterol, Calc 133 VLDL Cholesterol, Calc 14 HDL Cholesterol 40 Cholesterol/HDL Ratio 4.7 SARS-CoV-2, RNA, NAAT PG Care Time/CCT Total # of Minutes Spent Total Time Spent with Patient: Total time spent is greater than 50% in coordination of care (as documented) at patient's floor/unit and/or counseling patient: Prolonged Care Time Prolonged Care Time: Yes Total Prolonged Care Time: 90 Coding Level of Care Code 52215 Subseq Hosp Care Lvl 3 (25 - SIGNIFICANT, SEPARATELY IDENTIFIABLE ) Diagnoses Acute cerebrovascular accident (CVA) due to occlusion of left posterior cerebral artery I63.532 Essential hypertension I10 CAD (coronary atherosclerotic disease) I25.10 BPH (benign prostatic hyperplasia) N40.0 Weight loss R63.4 History of subdural hematoma (post traumatic) Z87.828 Acute metabolic encephalopathy G93.41 Palliative care encounter Z51.5 Additional Codes Prolonged Care Time - Prolonged Care Time: Yes ([id number])
--- NOTE | 2022-08-27 14:38 | Palliative Care Consultation ---
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 Additionally, another daughter was called via telephone for participation. Family is undecided about where they would like patient discharged to and inquired about the option of leaving him here in the hospital with hospice. I reviewed the general inpatient hospice rules are very strict and that he currently does not meet the Medicare criteria for GIP status, acute inpatient hospice. He is however a candidate for discharge home with hospice which we discussed in detail. * I provided education about the hospice benefit. Hospice is an interdisciplinary program offered by nurses, nurses aides, social workers, chaplains and a medical and health services manager for patients with a terminal condition and a life expectancy of less than 6 months. The goal would be to improve the quality of life of the patient in their home setting (home, penitentiary, inpatient hospice setting) by providing symptoms management, psychosocial and spiritual support. However, they cannot offer 24 hours care and if the family is unable to provide that care, they will have to consider personal care with out of pocket cost vs. penitentiary placement. * Family would like to bring patient home with hospice. They would like to speak a little bit together as a family to determine which residence he should be discharged home to. He is unclear at this time if they would choose to return to patient's home versus one of their own. They will participate in helping care for patient through this end-of-life transition. I have asked them to speak and make this decision so that care management can meet with them at approximately 1230 today to begin the process of identifying an area hospice for referral. They verbalized understanding and were agreement with this plan. * We have moved patient to comfort care status. Orders have been written. Nonessential test, labs and medications have been stopped. Family is in agreement. They would like his care streamlined to optimize comfort and relieve any symptom burden but do not want any other additional testing or laboratory work done. * At their request, we discussed changes pt may move through in the dying process including but not limited to sleeping more, disorientation when awake, restlessness, diminished senses/inability to respond to stimulus although ability to be aware of them remains intact longer, changes in body temperatures, skin changes/mottling/cyanosis, respiratory pattern changes, oral secretions. Family verbalized understanding. The goal is to assure a peaceful . * I offered and patient's family excepted referral to business operations director consultation, paperhanger was notified and will be in to meet with the family at the bedside. Please see his note for additional details. Thank you for allowing us to participate in the ongoing care of this patient. Please don't hesitate to call or page with any additional concerns. Dr. Ava Willett DNP Director, Palliative Care History of Present Illness Reason for Consultation: new stroke, family requesting Pall Med consult Attending Physician: Mario Dubon History of Present Illness Mr. Craft was seen today in consultation together with Dr Dubon from the hospitalist medicine team. per chart review, pt was acting increasing MS changes and weakness for approx 7- 10 days, GF noted this while he was driving last week and took over the driving from him. Family at bedside, report that pt refused to be seen or get evaluated. He had a prior hx stroke, treated with ventriculostomy and drain, dc to SNF wher e he signed out after 20 min and was very angry with family for having allowed these interventions to be done. Patient is seen at bedside with his daughters x2, son x1, son-in-law x1, and granddaughter at the bedside. All are in agreement with the desire to honor patient's wishes. Individually they will share stories of how patient had both individually and together as a family told them that he did "never wanted to live in a dependent way or need a place to take care of himself." They reiterate that he was always very consistent he would not except care in a penitentiary. His son-in-law states, "he is the kind of paty where if this it happened at home and he can take care of himself anymore, he probably take himself out back into the coyne and shoot himself." Leisure the patient was extremely proud of the life he had had, the home he built, and was very emphatic that he would in his own home, in his own bed. He was not a fan of seeking medical attention and would often not engage in preventive health either. For this admission, he was found down at home by his significant other, who does not live with him. It is unclear how long he was down for. He was not eligible for tPA. Family is clear he would not accept any surgical interventions. He would also not expect anyone to care for him in a long-term manner. They would like to discuss options and interventions that we will assure his comfort and dignity but not prolong any end-of-life suffering. Allergies Allergy/AdvReac Type Severity Reaction Status Date / Time No Known Allergies Allergy Unverified 08/26/22 12:14 Home Medications Medication Instructions Recorded Confirmed Type carvedilol 3.125 mg tablet 3.125 mg PO BID 08/26/22 08/26/22 History tamsulosin 0.4 mg capsule 0.4 mg PO DAILY 08/26/22 08/26/22 History Patient History Medical History BPH (benign prostatic hyperplasia) CAD (coronary atherosclerotic disease) DNR (do not resuscitate) Essential hypertension History of subdural hematoma (post traumatic) Surgical History Hx of CABG Family History Other Family history non-contributory Social History Smoking Status: Never smoker Hx Alcohol Use: No Hx Substance Use: No Preferred Language: Vincentian Communication Ability: Effective Computed Tomography Technologist Required: No Beliefs That Will Affect Care: Spiritual Current Living Situation: Alone Other Information That Helps Us Care for You: No Feels Safe at Home: Yes Safety Concerns: Feels Safe At This Time Assistive Devices: Denture - Upper, Denture - Lower, Glasses and Hearing Aid - Right Review of Systems Review of Systems: Unobtainable due to cognitive status Physical Exam Physical Exam: Elderly male, lying in bed, weakness on the right noted with facial droop. Speech is garbled. He is unable to follow commands. He will intermittently open his eyes but he is not tracking or following movement around the room. When he tries to speak, it is unfortunately unintelligible. Skin is slightly flushed and warm to touch. He is overall appears quite deconditioned and thin. Bony prominences are visible. He is mildly diaphoretic. This is a limited exam. Results & Data ([facility]) Vital Signs (Past 12 Hours) Vital Signs Temp Pulse Pulse Resp BP Pulse Ox O2 Del Method 08/27/22 10:00 68 08/27/22 07:46 36.8 C 60 16 167/74 H 95 Room Air 08/27/22 03:03 36.6 C 62 18 157/70 H 95 Laboratory Results Labs and imaging reviewed. PG Care Time/CCT Total # of Minutes Spent Total Time Spent with Patient: Total time spent is greater than 50% in coordination of care (as documented) at patient's floor/unit and/or counseling patient: I spent minutes overall addressing this case: 25 in medical data review/discussion with referring provider(s) and/or preparation for the visit: chart review, primary team and nursing 50 in direct interaction with the patient and family with 25min spent on Advance Care Planning/Goals of Care discussions as detailed above in note (must be >16min) 10 in subsequent review and synthesis of assessment and plan 15 in communicating with other providers regarding the patient's case: primary tea, nursing, paperhanger Prolonged Care Time Prolonged Care Time: Yes Total Prolonged Care Time: 20 Coding Level of Care Code New Pt ADVNCD CARE PLAN 30 MIN Patient Type New History Comprehensive Exam Comprehensive Medical Decision Making Moderate Complexity Diagnoses Palliative care encounter Z51.5 Advanced care planning/counseling discussion Z71.89 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
[2022-08-27] MEDS ORDERED: MoRPHine SULFATE 2 MG/ML CARP IV PRN (14:53)
[2022-08-27] MEDS ORDERED: GLYCOPYRROLATE 0.2 MG/ML VIAL IV PRN (14:53)
[2022-08-27] MEDS ORDERED: LORazepam 1 MG in SYRINGE 0 ML IV PRN (14:53)
[2022-08-27] MEDS ORDERED: MoRPHine SULFATE 5 MG/0.25 ML UDP PO PRN (14:53)
--- NOTE | 2022-08-28 13:32 | Palliative Care Progress Note ---
Date of Service August 28, 2022 Assessment & Plan (1) Palliative care encounter: Plan: Remains on comfort care. Taking PO as tolerated, pureed diet. Speech remains garbled. Family conflict noted. See separate family meeting note. (2) Need for comfort care: Plan: Continue current plan. Reviewed comfort care protocols with family. Salma had some misconceptions about comfort care and how she perceives the intention of her father's AD to be - she felt allowing him to take PO was not aligned with comfort care. Significant education provided. All questions answered to her apparent satisfaction, she expressed appreciation. Family have been keeping page. They appear fatigued. I have requested a comfort care food and beverage cart for them. (3) Family conflict: Plan: Please see separate family meeting note from today. 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 Ava Willett DNP Clinical Director, Palliative Medicine Admission and Anticipated Discharge Date Admission Date: August 26, 2022 Subjective Pt is a little more awake today, somewhat more alert. Signif visual defect on right, right sided weakness, facial droop and hearing deficit is greater on right than left. Last night he was able to tolerate PO via pureed diet. Family conflict noted: son Uday, dtrs Chanell and Salma + Salma's in waiting room arguing about old family conflicts/caring for pt/schedule of obligations, etc. Please , see family meeting note for more details. Review of Systems Review of Systems: Unobtainable due to cognitive status Physical Exam Physical Exam: Elderly male, lying in bed, weakness on the right noted with facial droop. Speech is garbled. He inconsistently will follow a few, simple commands. He will intermittently open his eyes but he is not tracking or following movement around the room. There is a visual defect on the right. Hearing deficit worse on right Skin diaphoretic, warm to touch. He is overall appears quite deconditioned and thin. Bony prominences are visible. He is mildly diaphoretic. Lungs diminished but clear, few faint rhonchi, no wheezing, normal effort, no use of accessory muscles. S1S1, no JVD. right sided weakness, right facial droop. 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
--- NOTE | 2022-08-28 13:56 | Palliative Family Discussion ---
Date of Service August 28, 2022 Patient Directed Conference Time of Meetinam - 1245pm Participants: Ava Willett DNP Patient participation: pt unable to participate Patient Support System: son Uday, dtrs Chanell and Salma, Salma's Other Healthcare Provider Participation: None Meeting Location: family waiting room third floor Advanced Directive available: yes/reviewed yesterday/see my consult note for outline of pt GOC The patient's surrogate medical decision maker participated: yes, jack Frye A family meeting was held for CLEOPATRA JONES. This meeting was necessary for determining the appropriate course of treatment. Topics of Discussion Topics of Discussion: 1. Advanced care planning/counseling discussion/Comfort Care 2. 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 Acute cerebrovascular accident (CVA) due to occlusion of left posterior cerebral artery 4. Family Conflicts/family stress. Other Content of Meetin. Opportunity given for participants to speak and ask questions. Chanell Frye and Salma were each given the opportunity to share their concerns. They shared that there is longstanding conflict and ill will between family members. Their oldest sister, Lory is not present for this discussion. The outlined several instances of miscommunication, bias, hostility between different siblings. Chanell and Lory do not easily get along, last time they interacted may have been at their mother's however even then there was conflict with Lory refusing to sit with family. Chanell shared that there were accusations about "you're after Dad's money" when she fofered to bring pt to her home with hospice, and it was noted she lvies the furthest away and this would be a hardship for the remaining siblings who are within 15-30 min of pt home. There are concerns voiced that "people won't honor or step up to help on the schedule they've agreed to, or the first time they have an issue or an argument with someone else, they'll say they're not helping anymore." 2. Participants were assured of attention to patient comfort: We dsicussed stroke sequelae and I reinforced our discussion from yesterday about how a few days poststroke may show a new baseline emerging as the most acute event becomes a few days old. We are seeing some of that now. They are all clear that the plan of care is not changing. They know pt would not accept current state and "would demand allowing him to have a natural , in his own bed, in his own home."we spoke about the transition patients make to a more active dying process which may include but not limited to sleeping more, disorientation when awake, restlessness, diminished senses/inability to respond to stimulus although ability to be aware of them remains intact longer, and changes in body tempera tures, skin changes/mottling/cyanosis, respiratory pattern changes, and oral secretions. Family verbalized understanding. The goal is to assure a peaceful . we also spoke about the EOL Rally: When a person facing the end of life rallies, they seem to become "more stable" - may want to talk or even begin taking PO; this phenomenon is usually seen as a sudden burst of energy before . This period of perking up can be accompanied by such a notable change in mental clarity that is often referred to as terminal lucidity. This change in cognition and behavior goes against everything families learn about the physical signs that the end of life is near. It is important to note that evidence-based data is elusive, if nonexistent. Theories support that it may be a search for a final, strong connection. Also, as organs shut down, they can release a steroid like compound that briefly rouses the body - in the specific case of brain tumors, swelling occurs in the confined space of the skull. The edema shrinks as EOL care patients are weaned off food and drink, waking up the brain a bit. Families and caregivers may grasp at what seems to be a turnaround in a loved ones health, however, the EOL Rally is a hallmark pre- sign. It is not uncommon for patients to show improvement before : they may want to talk while others may become restless or act as if they need to start preparing for a trip. Some patients will become more relaxed yet remain tuned in to what is going on around them, others will show signs of physical stability when, seconds before, they seemed on the verge of letting go. A rally can last for a few moments or even days. Short or long, these temporary improvements can have a profound effect on loved ones who are keeping page. Like a moment of clarity for someone who has dementia, a rally is one last opportunity to connect with a loved one. Each persons experience is unique and impossible to predict with total accuracy. Life is full of questions, and some of them simply are not meant to be answered. Read more: [email or web address].com//well/amw-iwxtofh-kh-avh-lw-fezh-rallilainey.html 3. Reassurance provided. 4. Support was provided for informed, good-tony decisions. We spoke about their concerns for family members repsecting the schedule they arrange and potential conflicts, for example, Chanell is emphatically clear she will not tolerate any mistreatment from Lory and if this occurs, she will leave and disengage, even if it means leaving a gap in their schedule of caring for pt. 5. Emotions expressed by family were acknowledged and addressed. 6. Follow-up: I called Lory on speaker from from this meeting and asked if we could schedule a time for a group meeting and work out the logistics for going home, expectaion for patient's care, etc. She is amenable to the morning and the family requested tomorrow at 730am, which has been confirmed and both Dr. Dubon and CM notified. 7. Plan of Care: for comfort care/Secretions at EOL/management: I discussed with family that as the level of consciousness decreases in the dying process, patients lose their ability to swallow and clear oral secretions. As air moves over the secretions, which have pooled in the oropharynx and bronchi, the resulting turbulence produces noisy ventilation with each breath, described as gurgling or rattling noises. While there is no evidence that patients find this rattle disturbing, evidence from bereaved surveys suggests the noises can be disturbing to the patients visitors and caregivers who may fear that the patient is choking to . I recommend a combination of Non-Pharmacological and Pharmacological Treatments: * 1. Position the patient on their side or in a semi-prone position to facilitate postural drainage * 2. Communication with family and caregivers to reaffirm commitment to their loves ones care, reduce anxiety and fears. * 3. Gentle oropharyngeal suctioning is used although this can be ineffective when fluids are beyond the reach of the catheter. Avoid deep suctioning as it is very irritating. Note that frequent suctioning is disturbing to both the patient and the visitors. * 4. Reduction of fluid intake. * 5. Consider a 1-2 min Trendelenburg positioning, to move fluids up into the oropharynx for easier removal BUT note that ASPIRATION RISK WILL INCREASE. * 6. Muscarinic receptor blockers (anti-cholinergic drugs) are most often used: glycopyrrolate (Robinul), scopolamine (Transderm Scop), hyoscyamine and atropine. Of these, I prefer to using glycopyrrolate as first line treatment, because it is a quaternary amine (therefore does not cross the blood-brain barrier) which reduces the potential anti cholinergic agent associated TACO MAKER toxicity (sedation, delirium). * 7. Glycopyrrolate has five times the anti-secretory potency compared to atropine, while scopolamine dries/thickens secretions and causes dry mouth, which may be more distressing to the patient and detract from comfort. Time Involved in Meeting: I spent 50 minutes overall addressing this case: 45 in direct interaction with the patient's family as outlined above 18 Advance Care Planning/Goals of Care discussions as detailed above in note (must be >16min) 15 in subsequent review and synthesis of assessment and plan 15 in communicating with other providers regarding the patient's case: primary team, nursing, care mgt
--- NOTE | 2022-08-28 19:14 | Hospitalist Progress Note ---
Date of Service August 28, 2022 Assessment & Plan (1) Palliative care encounter: Plan: see #2 below cont comfort measures family meeting tomorrow at 0730 to discuss disposition, etc (2) Acute cerebrovascular accident (CVA) due to occlusion of left posterior cerebral artery: Plan: With associated facial droop and dysarthria, right sided weakness, right sided neglect, dysphagia Lengthy discussion held with pt's 5 children and palliative care on 08/27/22 at bedside Patient was unable to participate in that discussion due to lethargy/altered MS Patient's 5 children were all in agreement at that time that he would not want any further work-up, treatment, post-discharge rehab, etc All of his children requested transition to comfort measures only and ultimately home with hospice I counseled them that he may improve from a mental status standpoint over the next few days and his deficits from the stroke may also improve during that same time frame The children voiced understanding of such, but still felt that their father had made it clear to them previously that he would not want ongoing treatment/rehab/etc To that end we d/c speech eval, PT/OT, echo, etc - transitioned him to comfort measures on 08/27 and transferred him off tele to med/surg social work aware of the above Allow diet as desired/tolerated if awake enough to eat appreciate palliative care consult and assistance (3) Essential hypertension: Plan: meds d/c (4) CAD (coronary atherosclerotic disease): Plan: known h/o such (5) BPH (benign prostatic hyperplasia): Plan: holding alpha briana dejesus prn (6) Weight loss: Plan: as reported by family over the last 6-12 months unknown amount (7) History of subdural hematoma (post traumatic): Plan: required evacuation for such (8) Acute metabolic encephalopathy: Plan: 2nd to acute CVA Plan support given to pt's 2 children cont comfort care pathway Admission and Anticipated Discharge Date Admission Date: August 26, 2022 Subjective patient sleeping throughout the visit daughter Chanell and son Uday were present they state that the rift between themselves and their other siblings continues the biggest conflict involves care of their father at home Chanell stated her father has been less interactive today he did eat some food but not as robustly as last evening during my assessment he did wake up but he was very hard to understand and only spoke briefly he appeared very weak family meeting is being planned for tomorrow morning Review of Systems Review of Systems: Unobtainable due to cognitive status Physical Exam Physical Exam: gen - thin, sleeping, only briefly opened eyes to his name being called; ongoing severely dysarthric speech face - R facial droop mouth - MM dry neck - no JVD heart - RRR, s1 s2, no murmur lungs - CTA b/l abd - soft NT ND BS+ ext - no edema, pulses 2+ b/l neuro - R facial droop; dysarthric speech; right sided neglect PG Care Time/CCT Total # of Minutes Spent Total Time Spent with Patient: Total time spent is greater than 50% in coordination of care (as documented) at patient's floor/unit and/or counseling patient: Coding Level of Care Code 44093 Subseq Hosp Care Lvl 1 Diagnoses Palliative care encounter Z51.5 Acute cerebrovascular accident (CVA) due to occlusion of left posterior cerebral artery I63.532 Essential hypertension I10 CAD (coronary atherosclerotic disease) I25.10 BPH (benign prostatic hyperplasia) N40.0 Weight loss R63.4 History of subdural hematoma (post traumatic) Z87.828 Acute metabolic encephalopathy G93.41
--- NOTE | 2022-08-29 10:26 | Hospitalist Progress Note ---
Date of Service August 29, 2022 Assessment & Plan (1) Palliative care encounter: Plan: cont comfort measures, family is supportive, family requests dejesus catheter, anticipate dc 08/30 (2) Acute cerebrovascular accident (CVA) due to occlusion of left posterior cerebral artery: Plan: With associated facial droop and dysarthria, right sided weakness, right sided neglect, dysphagia Lengthy discussion held with pt's 5 children and palliative care on 08/27/22 at bedside Patient was unable to participate in that discussion due to lethargy/altered MS Patient's 5 children were all in agreement at that time that he would not want any further work-up, treatment, post-discharge rehab, etc All of his children requested transition to comfort measures only and ultimately home with hospice I counseled them that he may improve from a mental status standpoint over the next few days and his deficits from the stroke may also improve during that same time frame The children voiced understanding of such, but still felt that their father had made it clear to them previously that he would not want ongoing treatment/rehab/etc To that end we d/c speech eval, PT/OT, echo, etc - transitioned him to comfort measures on 08/27 and transferred him off tele to med/surg social work aware of the above Allow diet as desired/tolerated if awake enough to eat appreciate palliative care consult and assistance (3) Essential hypertension: Plan: meds d/c (4) CAD (coronary atherosclerotic disease): Plan: known h/o such (5) BPH (benign prostatic hyperplasia): Plan: holding alpha briana dejesus prn (6) Weight loss: Plan: as reported by family over the last 6-12 months unknown amount (7) History of subdural hematoma (post traumatic): Plan: required evacuation for such (8) Acute metabolic encephalopathy: Plan: 2nd to acute CVA Admission and Anticipated Discharge Date Admission Date: August 26, 2022 Subjective Patient was seen in the company of his family he did awake to speak to me he said no when asked if he is any discomfort he also said no when I asked him if I can get anything for him. Review of Systems Review of Systems: Unobtainable due to cognitive status Constitutional: pt appeared comfortable Physical Exam Physical Exam: The patient appeared comfortable Vital signs as documented. Lungs are clear to auscultation and appear unlabored Cardiac exam, Rhythm is regular.. No murmurs, rubs or gallops. Abdominal exam reveals normal bowel sounds, soft non tender, Results & Data Results & Data ([facility]) Vital Signs (Past 12 Hours) Vital Signs O2 Del Method 08/29/22 08:30 Room Air PG Care Time/CCT Total # of Minutes Spent Total Time Spent with Patient: Total time spent is greater than 50% in coordination of care (as documented) at patient's floor/unit and/or counseling patient: Coding Level of Care Code 27775 Subseq Hosp Care Lvl 2 Diagnoses Palliative care encounter Z51.5 Acute cerebrovascular accident (CVA) due to occlusion of left posterior cerebral artery I63.532 Essential hypertension I10 CAD (coronary atherosclerotic disease) I25.10 BPH (benign prostatic hyperplasia) N40.0 Weight loss R63.4 History of subdural hematoma (post traumatic) Z87.828 Acute metabolic encephalopathy G93.41
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
[2022-08-30] MEDS ORDERED: HALOPERIDOL 1 MG/0.5 ML UDP PO PRN (09:03)
--- NOTE | 2022-08-30 10:04 | Palliative Care Progress Note ---
Date of Service August 30, 2022 Assessment & Plan (1) Palliative care encounter: Plan: Home with hospice today, transport 1045. family has worked out a schedule for care at home. No other acute issues. TS 12min no charge submitted Ava Willett DNP Clinical Director, Palliative Medicine (2) Need for comfort care: Admission and Anticipated Discharge Date Admission Date: August 26, 2022 PG Care Time/CCT Total # of Minutes Spent Total Time Spent with Patient: Total time spent is greater than 50% in coordination of care (as documented) at patient's floor/unit and/or counseling patient: Coding Level of Care Code None Diagnoses Palliative care encounter Z51.5 Need for comfort care
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
== END 2022-08-30 11:05 | disposition hospice, home (50) | DRG 64 ==
LOC: ED 09:12 → SUATTDRO 11:11 → EDINP 11:11 → 2E 13:17 → 3E 08-27 17:56